=== PATIENT | male | born 1980 | race Caucasian/White ===

== ENCOUNTER 2018-09-19 13:35 | Emergency (ER) | payer OTHER ==
[~2018-09-19] VITALS: Ht 177.8 cm; Wt 79.4 kg
--- NOTE | 2018-09-19 14:00 | NUR ---
patient presented to the ER due to possible percocet overdose. Connected to the monitor and pulse ox and 02 @ 2lpm via NC. Kept comfortable, will continue to monitor accordingly.
[2018-09-19] MEDS ORDERED: ONDANSETRON HCL/PF - ER 4 MG/2 ML VIAL IV ONE (14:30)
[2018-09-19] MEDS ORDERED: ONDANSETRON HCL/PF 4 MG/2 ML VIAL ONE (14:31)
[2018-09-19 14:41] LABS: BASOPHILS # (AUTO) 0.1 /CMM (0.0-0.2); BASOPHILS % (AUTO) 2.4 % (0.0-2.0); EOSINOPHILS % (AUTO) 3.6 % (0.0-6.0); HEMATOCRIT 42 % (39-51); HEMOGLOBIN 13.5 g/dL (13.5-17.5); LYMPHOCYTES # (AUTO) 0.7 /CMM (0.8-4.8); LYMPHOCYTES % (AUTO) 12.5 % (20.0-44.0); MEAN CORPUSCULAR HGB CONC 32 g/dl (31.0-36.0); MEAN CORPUSCULAR VOLUME 85 fL (80-96); MONOCYTES # (AUTO) 0.7 /CMM (0.1-1.30); MONOCYTES % (AUTO) 11.1 % (2.0-12.0); NEUTROPHILS # (AUTO) 4.2 /CMM (1.8-8.9); NEUTROPHILS % (AUTO) 70.4 % (43.0-81.0); PLATELET COUNT (AUTO) 224 /CMM (150-450); RED BLOOD CELL COUNT(AUTO) 4.89 MIL/uL (4.5-6.0); WHITE BLOOD COUNT (AUTO) 5.9 K/uL (4.3-11.0)
[2018-09-19 14:46] LABS: CALCIUM, SERUM 8.9 mg/dL (8.5-10.1); CARBON DIOXIDE 32 mmol/L (21-32); CHLORIDE 106 mmol/L (98-107); CREATININE 0.9 mg/dL (0.6-1.3); GLUCOSE 103 mg/dL (74-106); POTASSIUM 4.2 mmol/L (3.5-5.1); SODIUM SERUM 142 mmol/L (136-145); UREA NITROGEN, BLOOD 12 mg/dL (7-18)
[2018-09-19 14:52] LABS: ALANINE AMINOTRANSFERASE 66 U/L (12-78); ALCOHOL, BLOOD < 3 mg/dL (0-0); ALKALINE PHOSPHATASE 86 U/L (46-116); ASPARTATE AMINOTRANSFERASE 89 U/L (15-37); BILIRUBIN,DIRECT 0.1 mg/dL (0.0-0.2); BILIRUBIN,TOTAL 0.2 mg/dL (0.2-1.0); SALICYLATE 3.3 mg/dL (2.8-20.0); TOTAL PROTEIN, SERUM 7.7 g/dL (6.4-8.2)
[2018-09-19 15:09] LABS: ACETAMINOPHEN < 2 ug/ml (10-30)
--- NOTE | 2018-09-19 17:02 | NUR ---
urine collected and sent to lab
[2018-09-19 17:12] LABS: APPEARANCE,URINE Clear (CLEAR); BILIRUBIN,URINE Negative (NEGATIVE); BLOOD, URINE Negative Ery/uL (NEGATIVE); COLOR,URINE Yellow (YELLOW); KETONES,URINE Negative (NEGATIVE); LEUKOCYTE ESTERASE ,URINE Negative (NEGATIVE); NITRITE, URINE Negative (NEGATIVE); PROTEIN,URINE 100 mg/dl (NEGATIVE); UGLUCOSE Negative (NEGATIVE); UROBILINOGEN,URINE 0.2 EU/dL (0.2)
[2018-09-19 17:35] LABS: BACTERIA,URINE None seen /HPF (None Seen); RBC,URINE 0-2 /HPF (0-2); SQUAMOUS EPITHELIAL CELL,UR Few /HPF (None Seen); WBC,URINE 0-2 /HPF (0-3)
--- NOTE | 2018-09-19 18:49 | NUR ---
JERRI HENRY HR TRIP [id number] Addendum: 09/19/18 at 1853 by FREDA ETA HOURS
--- NOTE | 2018-09-19 19:09 | NUR ---
report given to Hayden QURESHI for suze.
--- NOTE | 2018-09-19 19:19 | NUR ---
PT AND REPORT RECEUVED FROM KIERA LINDSEY FOR [facility]CKAYLA. PT IN BED. AAOX4. NAD. AWAITING TRANSPORT FOR DC TO BOARD AND CARE. ETA 8:30-8:45PM
[2018-09-19] MEDS ORDERED: IBUPROFEN 600 MG TABLET PO ONE ×2 (21:21→21:30)
[2018-09-19] MEDS ORDERED: ONDANSETRON 4 MG TAB.RAPDIS ONE (21:22)
[2018-09-19 21:30] VITALS: BP 145/97
[2018-09-19] MEDS ORDERED: ONDANSETRON 4 MG TAB.RAPDIS SL ONE (21:30)
--- NOTE | 2018-09-19 21:31 | NUR ---
[facility] AT BEDSIDE TO TRANSPORT PT BACK BOARD CARE WITH 2 AMB[facility]NA[facility] STAFF. REPORT GIVEN TO CHERISE, TRIP# [id number]. PT AAOX4. AMBULATORY WITH SBA. NAD. BREATGING EVEN AND UNLABORED.
--- NOTE | 2018-09-19 21:39 | NUR ---
PT IS STAYING AT HEART TO HEART BOARD AND CARE IN [place]. CALLED THE FACILITY @ [phone] AND [phone]. NO ANSWER ON BOTH NUMBER MESSAGE LEFT THAT PT IS ON HIS WAY BACK.
--- NOTE | 2018-09-19 21:45 | NUR ---
Patient discharged to board and care via ambulanz in stable condition. Written and verbal after care instructions given. Patient verbalizes understanding of instruction.
--- NOTE | 2018-09-19 22:00 | NUR ---
RECIEVED A CALL BACK FROM CAMILLE AT [facility]. REPORT GIVEN.
== END 2018-09-19 21:40 | disposition home or self-care (01) ==
LOC: ER 13:39
DX: T39.1X1A Poisoning by 4-Aminophenol derivatives, accidental (unintentional), initial encounter (principal); T40.601A Poisoning by unspecified narcotics, accidental (unintentional), initial encounter; F31.9 Bipolar disorder, unspecified; F10.10 Alcohol abuse, uncomplicated; R41.82 Altered mental status, unspecified; Y90.0 Blood alcohol level of less than 20 mg/100 ml; Z59.0 Homelessness; Y92.89 Other specified places as the place of occurrence of the external cause
CPT/HCPCS: 36415; 71045; 80048; 80076; 80305; 80307; 80329; 81001; 85025; 93005; 96374; 99284; G0480; J2405 ×2; Q0162; 81000-TC